=== PATIENT | male | born 1955 | race Caucasian/White ===

== ENCOUNTER → 2021-03-14 13:25 | Outpatient (CLI) | payer MEDICARE, OTHER, SELFPAY ==
[2021-03-14 15:54] LABS: COVID19 -Nasal RAPID Negative (Negative)
== END ==
PROVIDERS: Visit Provider Physician Assistant
DX: Z01.812 Encounter for preprocedural laboratory examination (principal); Z20.822 Contact with and (suspected) exposure to COVID-19
CPT/HCPCS: 87635; C9803

== ENCOUNTER 2021-03-16 07:45 | Day surgery (SDC) | payer MEDICARE, OTHER, SELFPAY ==
--- NOTE | 2021-03-16 | PATH_ITS ---
[facility] Accession Number: [id number] . 01 Material submitted: . PART A: colon - RIGHT COLON BIOPSY X2 PART B: colon - TRANSVERSE COLON BIOPSY X2 PART C: colon - LEFT COLON BIOPSY X2 . 02 Diagnosis: A-C. Right, Transverse, Left Colon, Biopsies: Colonic mucosa with no diagnostic abnormality. Negative for active, chronic, and microscopic colitis. Negative for dysplasia and malignancy. . [facility] 03/18/2021 1639 Local . 02 Electronically signed: . Joseph Herman MD, PhD, Pathologist NPI- [id number] . 01 Gross description: . Part A: RIGHT COLON BIOPSY X2: Received in formalin are multiple fragment(s) of sellers, soft tissue measuring 1.0 x 0.3 x 0.1 cm in aggregate submitted entirely in 1 cassette(s) Part B: TRANSVERSE COLON BIOPSY X2: Received in formalin are multiple fragment(s) of sellers, soft tissue measuring 0.9 x 0.4 x 0.1 cm in aggregate submitted entirely in 1 cassette(s) Part C: LEFT COLON BIOPSY X2: Received in formalin are multiple fragment(s) of sellers, soft tissue measuring 0.9 x 0.6 x 0.1 cm in aggregate submitted entirely in 1 cassette(s) /ROSALIA 03/17/2021 0501 Local . 02 Pathologist provided ICD-10: Z12.11, Z87.19 . 02 CPT . 397846, [id number], [id number] Performed at: 01 [facility] [address], [place], [place] [id number] MD Hal Parker MD Phone: [phone] Performed at: [facility] [id number], [place] [id number] MD Tamiko Kenney MD Phone: [phone]
[2021-03-16 08:26] VITALS: BP 116/73; PULSE 62; RESP 12; TEMP 36.6; O2SAT 98
[2021-03-16] MEDS: SODIUM CHLORIDE 0.9% 1,000 ML 84 ML IV (08:30)
--- NOTE | 2021-03-16 09:06 | PM.HP.1 ---
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 last colonoscopy 8 years ago Patient History Medical History Atrial fibrillation Insulin resistance Surgical History History of hernia surgery Family & Social History Social History: household members spouse Tobacco & Substance use: Smoking Status Never smoker alcohol intake current alcohol intake frequency a few times a week Substance Use Type does not use Meds Home Medications and Allergies Home Medications Medication Instructions Recorded Confirmed Type aspirin 81 mg tablet 81 mg PO DAILY 03/16/21 03/16/21 History flecainide 100 mg tablet 100 mg PO BID 03/16/21 03/16/21 History lidocaine 4 % topical patch 1 patch TOPICAL DAILY PRN 03/16/21 03/16/21 History (Lidocaine Pain Relief) metoprolol tartrate 50 mg tablet 25 mg PO DAILY PRN 03/16/21 03/16/21 History rosuvastatin 10 mg tablet 10 mg PO 4XW 03/16/21 03/16/21 History sildenafil 100 mg tablet 100 mg PO DAILY PRN 03/16/21 03/16/21 History verapamil 180 mg tablet,extended 180 mg PO DAILY 03/16/21 03/16/21 History release Allergies Allergy/AdvReac Type Severity Reaction Status Date / Time No Known Drug Allergies Allergy Verified 03/16/21 08:13 Exam Vital Signs (past 8 hours): - 03/16/21 08:26 Temperature 97.8 F Pulse Rate 62 Respiratory Rate 12 Blood Pressure 116/73 Pulse Oximetry 98 Oxygen Delivery Method Room Air Narrative Exam Narrative: Oropharynx free of lesions Chest clear to auscultation percussion Cardiac exam reveals no S3 or murmur Assessment & Plan Assessment & Plan narrative: History of proctitis with need for follow-up colonoscopy for screening. Risks, benefits, and alternatives have been explained.
--- NOTE | 2021-03-16 09:07 | PM.OP.ENDO ---
Operative Date/Time/Diagnoses Date of procedure: 03/16/21 Pre-op diagnosis: See indication and findings Procedure & Clinicians Study performed: Colonoscopy Indications: History of proctitis need for colonoscopic screening Surgeon: Jill Vaughn Procedure Notes Procedure in detail: After informed consent was obtained the patient placed in a left lateral decubitus position. The video colonoscope was placed in the rectum slowly advanced cecum. Preparation was good. On slow withdrawal mucosa was carefully examined. The scope was removed. The patient tolerated procedure well. Blood loss none Complications none Sedation Total sedation time 28 minutes Versed 4 mg fentanyl 100 micro g IV titration Findings 1. Completely normal colonoscopy to cecum. Two biopsies taken every 10 cm and placed in bottles right colon, transverse colon, and left colon. Left colon biopsies included rectum. Lesion have follow-up colonoscopy 1 more time in 7-10 years.
[2021-03-16] MEDS: fentaNYL 250 MCG/5 ML INJ IV (09:09)
[2021-03-16] MEDS: MIDAZOLAM 5 MG/5 ML VIAL IV (09:22)
[2021-03-16 09:41] VITALS: BP 94/57; PULSE 55; RESP 16; TEMP 36.3; O2SAT 95
[2021-03-16 09:46] VITALS: BP 90/56; PULSE 56; RESP 14; O2SAT 95
[2021-03-16 09:51] VITALS: BP 88/57; PULSE 52; RESP 14; O2SAT 95
[2021-03-16 09:56] VITALS: BP 99/60; PULSE 54; RESP 16; TEMP 36.4; O2SAT 96
== END 2021-03-16 10:15 | disposition home or self-care (01) ==
PROVIDERS: Referring Provider Internal Medicine Gastroenterology; Visit Provider Internal Medicine Gastroenterology
PROC: 0DJD8ZZ Inspection of Lower Intestinal Tract, Via Natural or Artificial Opening Endoscopic (ICD-10-PCS; CPT 45378; principal; 2021-03-16 09:00)
DX: Z12.11 Encounter for screening for malignant neoplasm of colon (principal); Z87.19 Personal history of other diseases of the digestive system; I48.91 Unspecified atrial fibrillation
CPT/HCPCS: 45380; J2250; J3010